=== PATIENT | male | born 1970 | race Caucasian/White ===

== ENCOUNTER 2017-05-11 06:44 | Day surgery (SDC) | payer MEDICARE ==
[2017-05-11] MEDS ORDERED: Sodium Chloride 0.9% 10 ML Syringe FLUSH PRN (06:45)
[2017-05-11] MEDS: Lactated Ringers 1,000 ML IV SCH (07:19)
[2017-05-11] MEDS ORDERED: Propofol 200 MG/20 ML SDV IV ONE (08:00)
[2017-05-11] MEDS ORDERED: Midazolam 1 MG/ML 2 ML SDV IV ONE (08:00)
--- NOTE | 2017-05-11 08:19 | PCM.OPNOTE ---
- General Post-Op/Procedure Note Date of Surgery/Procedure: 05/11/17 Operative Procedure(s): c scope Findings: normal exam Pre Op Diagnosis: hematochezia Post-Op Diagnosis: normal study Anesthesia Technique: MAC Primary Surgeon: Tres Crawford Anesthesia Provider: Severiano Buenrostro Pathology: none Complications: None Condition: Good Free Text/Narrative:: see dictation
--- NOTE | 2017-05-11 09:47 | OR ---
DATE OF OPERATION: 05/11/2017 SURGEON: Tres Crawford MD PROCEDURE PERFORMED: Colonoscopy. PREOPERATIVE DIAGNOSIS: Personal history of colon polyps and hematochezia. POSTOPERATIVE DIAGNOSIS: Normal exam. INDICATIONS FOR PROCEDURE: This is a 46-year-old white male, who apparently has had intermittent bout of hematochezia, which has spontaneously resolved. He has also had a colonoscopy in the past and apparently found to have benign polyps. This was over in [place]. On the basis of these 2 complaints, he was offered and accepted colonoscopy. DESCRIPTION OF PROCEDURE: After an excellent IV sedation was administered, digital rectal exam was performed. No marked abnormality was noted. The flexible colonoscope was inserted and advanced without difficulty to the cecum. The prep was excellent. The following findings were noted: Ascending colon, unremarkable. Transverse colon, unremarkable. Descending colon, unremarkable. Sigmoid and rectum, unremarkable. Colon was deflated. The scope was removed. The patient tolerated the procedure well, and was taken to recovery room in good condition. Repeat colonoscopy in 10 years. /[id number] /MODL
--- NOTE | 2017-05-11 10:18 | PREOP ---
ADMISSION DATE: 05/11/2017 CHIEF COMPLAINT: Hematochezia. HISTORY OF PRESENT ILLNESS: A 46-year-old white male who has had some bleeding per rectum. This has happened about a week ago, spontaneously resolved. He has had episodes like this in the past. He apparently has a history of benign polyps on previous colonoscopy. He has a negative family history. He does run towards constipation, but attributes this to his medication. MEDICATIONS: 1. Lamictal 100 mg once daily. 2. Sinemet 25-100 mg 1-1/2 tablets 3 times a day. 3. Albuterol 2 puffs every 6 hours as needed. 4. Prilosec 40 mg daily. 5. Imitrex 100 mg half a tablet by mouth as needed for migraines. 6. Vitamin D3 2000 international units daily. ALLERGIES: He has no known drug allergies. PAST MEDICAL HISTORY: Significant for schizoaffective disorder, bipolar type; migraine headaches; gastroesophageal reflux disease; chronic low back pain; history of esophageal stricture; insomnia; anxiety; depression; and parkinsonism. PAST SURGICAL HISTORY: Significant for colonoscopy. FAMILY HISTORY: Significant for hypertension, hypercholesterolemia, arthritis, bipolar disease, Parkinson disease, breast cancer, and asthma. SOCIAL HISTORY: The patient is , has 1 child. He has 11 years of education. He is disabled. He does not smoke. Denies any alcohol use. REVIEW OF SYSTEMS: CONSTITUTIONAL: The patient does note some unexpected weight change. HEENT: Positive for some difficulty swallowing. RESPIRATORY: Positive for cough and wheezing. GASTROINTESTINAL: Positive for blood in stools. GENITOURINARY: Positive for difficulty urinating. MUSCULOSKELETAL: Notable for back pain and some gait issues. PHYSICAL EXAMINATION: GENERAL: This is a well-developed, well-nourished male with an obvious pill roll tremor. HEENT: Grossly within normal limits. LUNGS: Clear to auscultation. HEART: Regular rate and rhythm. ABDOMEN: Soft and nontender. ASSESSMENT: History of hematochezia. PLAN: Colonoscopy procedure and risks explained to the patient to include bleeding, infection, perforation. He expresses understanding and he asked us to proceed. /[id number] /MODL
== END 2017-05-11 09:51 | disposition home or self-care (01) ==
LOC: FB.SDS 06:44
PROVIDERS: ATTEND Surgery
DX: K92.1 Melena (principal); F25.0 Schizoaffective disorder, bipolar type; G20 Parkinson's disease; K21.9 Gastro-esophageal reflux disease without esophagitis; G43.909 Migraine, unspecified, not intractable, without status migrainosus; G89.29 Other chronic pain; M54.5 Low back pain; F41.9 Anxiety disorder, unspecified; Z79.899 Other long term (current) drug therapy; Z86.010 Personal history of colon polyps
CPT/HCPCS: 00811-QZ; J2250; J2704; J7120

== ENCOUNTER 2019-01-26 13:47 | Emergency (ER) | payer MEDICARE ==
[2019-01-26] MEDS ORDERED: Sodium Chloride 0.9% 10 ML Syringe FLUSH PRN (14:00)
[2019-01-26] MEDS ORDERED: Iopamidol 755 Mg/ML 100 ML Bottle IV ONE (14:26)
--- NOTE | 2019-01-26 15:04 | EDM.PDOC ---
ED HPI GENERAL MEDICAL PROBLEM - General Chief Complaint: Chest Pain Stated Complaint: CHEST PAIN Time Seen by Provider: 01/26/19 14:05 Source of Information: Reports: Patient History Limitations: Reports: No Limitations - History of Present Illness INITIAL COMMENTS - FREE TEXT/NARRATIVE: Patient presented to the ED from the clinic because of an elevated D-dimer. He has been coughing x2 weeks now which is non-productive with associated left sided pleuritic pain. The pain is sharp,3/10 and worse with coughing and body movements. There is no associated fever or chills. His EKG and trop done in the clinic were normal. Treatments STOVE MOUNTER: Reports: EKG chest Pain Score (Numeric/FACES): 2 - Related Data Allergies Allergy/AdvReac Type Severity Reaction Status Date / Time No Known Allergies Allergy Verified 01/26/19 14:20 Home Meds: Home Meds Omeprazole 40 mg PO DAILY 03/09/13 [History] Albuterol [Ventolin HFA] 2 puff INH Q6H PRN 05/08/17 [History] Carbidopa/Levodopa [Carbidopa-Levodopa 25-100 Tab] 2 each PO 09,,,18 [History] Cholecalciferol (Vitamin D3) [Vitamin D3] 2,000 unit PO DAILY 05/08/17 [History] lamoTRIgine [Lamotrigine] 100 mg PO DAILY 05/08/17 [History] Azithromycin [Zithromax] 200 mg PO DAILY #6 ml 01/26/19 [Rx] Carbidopa 25 mg PO 12,15,18 01/26/19 [History] Carbidopa 50 mg PO 09 01/26/19 [History] Naproxen 500 mg PO BID #15 tablet 01/26/19 [Rx] lamoTRIgine [Lamotrigine] 25 mg PO DAILY 01/26/19 [History] Past Medical History HEENT History: Reports: None Cardiovascular History: Reports: None Respiratory History: Reports: Asthma Gastrointestinal History: Reports: GERD, Other (See Below) Other Gastrointestinal History: ESOPHAGEAL STRICTURE; H&P NOTED UCLER, UNSPECIFIED Genitourinary History: Reports: None CHANGE MANAGEMENT ANALYST History: Reports: None Musculoskeletal History: Reports: Back Pain, Chronic Neurological History: Reports: Migraines, Parkinson's Psychiatric History: Reports: Anxiety, Depression, Schizophrenia, Other (See Below) Other Psychiatric History: INSOMNIA Endocrine/Metabolic History: Reports: None Hematologic History: Reports: None Immunologic History: Reports: None Oncologic (Cancer) History: Reports: None Dermatologic History: Reports: Other (See Below) Other Dermatologic History: ULCER, UNSPECIFIED - Infectious Disease History Infectious Disease History: Reports: None - Past Surgical History Head Surgeries/Procedures: Reports: None HEENT Surgical History: Reports: None Cardiovascular Surgical History: Reports: None Respiratory Surgical History: Reports: None GI Surgical History: Reports: Colonoscopy, EGD Social & Family History - Family History GI: Reports: None - Tobacco Use Smoking Status *Q: Never Smoker - Caffeine Use Caffeine Use: Reports: None - Recreational Drug Use Recreational Drug Use: No ED ROS GENERAL - Review of Systems Review Of Systems: See Below Constitutional: Reports: No Symptoms HEENT: Reports: No Symptoms Respiratory: Reports: No Symptoms Cardiovascular: Reports: No Symptoms Endocrine: Reports: No Symptoms GI/Abdominal: Reports: No Symptoms : Reports: No Symptoms Musculoskeletal: Reports: No Symptoms Skin: Reports: No Symptoms Neurological: Reports: No Symptoms ED EXAM, GENERAL - Physical Exam Exam: See Below Exam Limited By: No Limitations General Appearance: Alert, WD/WN, No Apparent Distress Ears: Normal External Exam, Normal Canal, Hearing Grossly Normal, Normal TMs Nose: Normal Inspection, Normal Mucosa, No Blood Throat/Mouth: Normal Inspection, Normal Lips, Normal Teeth, Normal Oropharynx, Normal Voice, No Airway Compromise Head: Atraumatic, Normocephalic Neck: Normal Inspection, Supple, Non-Tender, Full Range of Motion Respiratory/Chest: No Respiratory Distress, Lungs Clear, Normal Breath Sounds, No Accessory Muscle Use, Chest Non-Tender Cardiovascular: Normal Peripheral Pulses, Regular Rate, Rhythm, No Edema, No Gallop, No JVD, No Murmur GI/Abdominal: Normal Bowel Sounds, Soft, Non-Tender, No Organomegaly, No Distention, No Abnormal Bruit, No Mass Back Exam: Normal Inspection, Full Range of Motion Extremities: Normal Inspection, Normal Range of Motion Neurological: Alert, Oriented, CN II-XII Intact, Normal Cognition, Normal Gait, Normal Reflexes, No Motor/Sensory Deficits Course - Vital Signs Text/Narrative:: labs and chest CT result discussed with patient Chest CT-see result Last Recorded V/S: Last Vital Signs Temp 37.1 C 01/26/19 13:50 Pulse 79 01/26/19 13:50 Resp 18 01/26/19 15:00 BP 112/66 01/26/19 15:00 Pulse Ox 96 01/26/19 15:00 - Orders/Labs/Meds Orders: Active Orders 24 hr Category Date Time Status Saline Lock Insert [OM.PC] Routine Oth 01/26/19 14:00 Ordered Labs: Laboratory Tests 01/26/19 01/26/19 01/26/19 Range/Units 14:14 14:14 14:14 WBC 5.1 (4.5-12.0) X10-3/uL RBC 4.93 (4.30-5.75) x10(6)uL Hgb 15.7 (13.5-17.8) g/dL Hct 46.5 (30.0-51.3) % MCV 94.4 (80-96) fL MCH 31.9 (27.7-33.6) pg MCHC 33.8 (32.2-35.4) g/dL RDW 12.0 (11.5-15.5) % Plt Count 238 (125-369) X10(3)uL MPV 7.4 (7.4-10.4) fL Neut % (Auto) 59.5 (46-82) % Lymph % (Auto) 30.4 (13-37) % Ocean % (Auto) 7.5 (4-12) % Eos % (Auto) 2 (1.0-5.0) % Baso % (Auto) 0 (0-2) % Neut # (Auto) 3.1 (1.6-8.3) # Lymph # (Auto) 1.5 (0.6-5.0) # Ocean # (Auto) 0.4 (0.0-1.3) # Eos # (Auto) 0.1 (0.0-0.8) # Baso # (Auto) 0.0 (0.0-0.2) # PT 10.4 (8.7-11.1) INR 1.07 (0.89-1.13) APTT 23.1 L (24.4-33.2) SECONDS Sodium 142 (135-145) mmol/L Potassium 4.2 (3.5-5.3) mmol/L Chloride 104 (100-110) mmol/L Carbon Dioxide 32 (21-32) mmol/L BUN 13 (7-18) mg/dL Creatinine 0.9 (0.70-1.30) mg/dL Est Cr Clr Drug Dosing TNP Estimated GFR (MDRD) > 60 (>60) BUN/Creatinine Ratio 14.4 (9-20) Glucose 93 (80-116) mg/dL Calcium 8.8 (8.6-10.2) mg/dL Meds: Medications Discontinued Medications Generic Name Dose Route Start Last Admin Trade Name Freq PRN Reason Stop Dose Admin Iopamidol 100 ml 01/26/19 14:26 01/26/19 14:28 Isovue-370 (76%) IV 01/26/19 14:27 86 ml ONETIME ONE Administration Sodium Chloride 10 ml 01/26/19 14:00 01/26/19 14:10 Saline Flush FLUSH 10 ml ASDIRECTED PRN Administration Keep Vein Open Departure - Departure Time of Disposition: 15:00 Disposition: Home, Self-Care 01 Condition: Good Clinical Impression: Acute bronchitis, Pleuritic pain - Discharge Information Prescriptions: Azithromycin [Zithromax] 200 mg PO DAILY #6 ml Naproxen 500 mg PO BID #15 tablet Instructions: Pleurisy, [id number], Acute Bronchitis, Adult Referrals: Michael Gomez MD [Primary Care Provider] - Forms: ED Department Discharge Additional Instructions: please read discharge instructions on bronchitis and pleuritic pain increase oral fluids z-isabel as directed naproxen 500 mg twice daily for 7 days follow up if symptoms persist Sepsis Event Note - Evaluation Sepsis Screening Result: No Definite Risk - Focused Exam Vital Signs: Vital Signs Temp Pulse Resp BP Pulse Ox 01/26/19 15:00 18 112/66 96 01/26/19 14:45 18 116/78 96 01/26/19 14:30 18 113/65 96 01/26/19 14:00 18 119/86 01/26/19 13:50 37.1 C 79 16 139/75 99 Date Exam was Performed: 01/26/19 Time Exam was Performed: 21:30 - My Orders Last 24 Hours: My Active Orders 01/26/19 14:00 Saline Lock Insert [OM.PC] Routine - Assessment/Plan Last 24 Hours: My Active Orders 01/26/19 14:00 Saline Lock Insert [OM.PC] Routine
--- NOTE | 2019-01-26 16:22 | CT ---
INDICATION: Chest pain to the left of the sternum, question pulmonary emboli. Elevated D-dimer. COMPUTERIZED TOMOGRAPHY ANGIOGRAPHY OF THE CHEST WITH CONTRAST: Spiral 1.25 mm axial sections were obtained through the chest with sagittal and coronal reconstructions utilizing 86 cc Isovue-370 (at 3 cc/second) 01/26/19 and compared with 08/08/14. Total exam DLP was 439.82 mGy-cm. No mediastinal mass was identified. The heart is normal in size. No pericardial effusion was seen. Upper abdomen included on the study revealed no gross abnormality, except for question of a 10 mm renal calculus in the mid pole of the right kidney seen on axial image 535, among others. A subpleural density is noted at the left lower lobe with a density stringing anteriorly and inferiorly to the diaphragm area. This may represent an area of subsegmental atelectasis or possibly minimal pneumonia and atelectasis. Pulmonary infarct is felt to be less likely. Otherwise, a definite active infiltrate or effusion was not identified. Minimal fibrotic changes are suggested at the right lower lobe posteriorly at the lung base. No evidence of a pulmonary embolus could be identified however. IMPRESSION: 1. No evidence of pulmonary embolus identified. 2. Infiltrate and possible atelectasis in the left lower lobe at the lung base extending from the costophrenic angle area medially into the infrahilar area. A degree of fibrosis could also be present with this appearance and/or a pneumonia. 3. Renal calculus 10 mm in diameter mid pole right kidney. Report was called to Dr. Luther at [address] [facility]
== END 2019-01-26 15:09 | disposition home or self-care (01) ==
LOC: FB.ED 13:47
DX: J20.9 Acute bronchitis, unspecified (principal); J45.909 Unspecified asthma, uncomplicated; K21.9 Gastro-esophageal reflux disease without esophagitis; Z79.899 Other long term (current) drug therapy
CPT/HCPCS: 36415; 71275; 80048; 85025; 85610; 85730; 99285; Q9967; 99283

== ENCOUNTER 2023-10-14 05:27 | Emergency (ER) | payer MEDICARE ==
[2023-10-14 06:01] LABS: BASOPHILS PERCENT AUTO 0.4 % (0.3-3.8); EOSINOPHILS ABSOLUTE AUTO 0.1 x10-3/uL (0.0-0.6); EOSINOPHILS PERCENT AUTO 1.3 % (0.1-6.8); HEMATOCRIT 43.1 % (38.3-50.1); HEMOGLOBIN 14.7 g/dL (12.9-17.7); LYMPHOCYTES ABSOLUTE AUTO 1.1 x10-3/uL (0.5-4.5); LYMPHOCYTES PERCENT AUTO 16.9 % (15.8-45.3); MEAN CORPUSCULAR VOLUME 94.1 fL (80.8-98.7); MEAN PLATELET VOLUME 7.4 fL (6.7-11.0); MONOCYTES ABSOLUTE AUTO 0.5 x10-3/uL (0.0-1.2); MONOCYTES PERCENT AUTO 7.7 % (5.5-15.2); NEUTROPHILS ABSOLUTE AUTO 4.6 x10-3/uL (1.7-6.9); NEUTROPHILS PERCENT AUTO 73.7 % (40.3-71.8); PLATELET COUNT,PLT 304 x10(3)uL (117-477); RED BLOOD CELL COUNT 4.58 x10(6)uL (3.90-5.90); RED CELL DISTRIBUTION WIDTH 12.9 % (12.4-15.0); WHITE BLOOD CELL COUNT,WBC 6.2 x10-3/uL (3.2-10.1)
[2023-10-14 06:08] LABS: BLOOD UREA NITROGEN,BUN 14 mg/dL (7-18); BUN/CREATININE RATIO 17.5 (9-20); CALCIUM 8.6 mg/dL (8.6-10.2); CARBON DIOXIDE,CO2 31 mmol/L (21-32); CHLORIDE,CL 104 mmol/L (100-110); CREATININE 0.8 mg/dL (0.70-1.30); EST CRCL DRUG DOSING (CG) 109.24 mL/min; ESTIMATED GFR 107 mL/min (>60); GLUCOSE RANDOM 111 mg/dL (80-116); POTASSIUM,K 3.5 mmol/L (3.5-5.3); SODIUM,NA 143 mmol/L (135-145)
[2023-10-14 06:10] LABS: BILIRUBIN,URINE NEGATIVE (NEGATIVE); GLUCOSE,URINE NORMAL (NORMAL); KETONES,URINE NEGATIVE (NEGATIVE); LEUKOCYTE ESTERASE,URINE NEGATIVE (NEGATIVE); NITRITE,URINE NEGATIVE (NEGATIVE); OCCULT BLOOD,URINE MODERATE (NEGATIVE); PROTEIN,URINE NEGATIVE (NEGATIVE); UROBILINOGEN,URINE 1 mg/dL (NEGATIVE)
[2023-10-14 06:12] LABS: APPEARANCE,URINE CLEAR (CLEAR); BACTERIA,URINE MANY (NS); COLOR,URINE YELLOW (YELLOW); RBC,URINE 0-5 (0-5); SQUAMOUS EPITHELIAL CELLS,UR FEW (NS,R,O); WBC,URINE 0-5 (0-5)
[2023-10-14 06:13] LABS: A/G RATIO 1.2; ALANINE AMINOTRANSFERASE,ALT 15 U/L (12-36); ALBUMIN 3.9 g/dL (3.5-5.2); ALKALINE PHOSPHATASE 81 IU/L (56-112); ASPARTATE AMNIOTRANSFERASE,AST 13 IU/L (5-25); BILIRUBIN TOTAL 0.7 mg/dL (0.1-1.3); PROTEIN TOTAL,TP 7.2 g/dL (6.0-8.0)
[2023-10-14] MEDS ORDERED: cefTRIAXone 1 GM in Sodium Chloride 0.9% 50 ML IV ONE (06:32)
[2023-10-14] MEDS: Carbidopa/Levodopa 25-100 MG Tab PO ONE (06:52)
[2023-10-14] MEDS: cefTRIAXone 1 GM Vial IM ONE (06:53)
== END 2023-10-14 08:00 | disposition home or self-care (01) ==
LOC: FB.ED 05:27
DX: G20.A1 Parkinson's disease without dyskinesia, without mention of fluctuations (principal); N39.0 Urinary tract infection, site not specified; K21.9 Gastro-esophageal reflux disease without esophagitis; Z79.899 Other long term (current) drug therapy
CPT/HCPCS: 36415; 80053; 81001; 85025; 87086; 96372; 99285; A9270; J0696; 99284

== ENCOUNTER 2023-11-19 22:52 | Emergency (ER) | payer MEDICARE ==
[2023-11-19] MEDS ORDERED: Sodium Chloride 0.9% 10 ML Syringe FLUSH PRN (22:53)
[2023-11-19] MEDS ORDERED: Carbidopa/Levodopa 25-100 MG Tab PO ONE (22:55)
[2023-11-19 23:07] LABS: BASOPHILS ABSOLUTE AUTO 0.1 x10-3/uL (0.0-0.3); BASOPHILS PERCENT AUTO 0.5 % (0.3-3.8); EOSINOPHILS ABSOLUTE AUTO 0.1 x10-3/uL (0.0-0.6); EOSINOPHILS PERCENT AUTO 0.6 % (0.1-6.8); HEMATOCRIT 42.4 % (38.3-50.1); HEMOGLOBIN 14.4 g/dL (12.9-17.7); LYMPHOCYTES ABSOLUTE AUTO 1.1 x10-3/uL (0.5-4.5); LYMPHOCYTES PERCENT AUTO 8.7 % (15.8-45.3); MEAN CORPUSCULAR HEMOGLOBIN 31.6 pg (27.0-33.3); MEAN CORPUSCULAR HGB CONC 33.9 g/dL (28.7-35.3); MEAN CORPUSCULAR VOLUME 93.4 fL (80.8-98.7); MEAN PLATELET VOLUME 7.5 fL (6.7-11.0); MONOCYTES ABSOLUTE AUTO 1.3 x10-3/uL (0.0-1.2); MONOCYTES PERCENT AUTO 10.3 % (5.5-15.2); NEUTROPHILS PERCENT AUTO 79.9 % (40.3-71.8); PLATELET COUNT,PLT 274 x10(3)uL (117-477); RED BLOOD CELL COUNT 4.54 x10(6)uL (3.90-5.90); RED CELL DISTRIBUTION WIDTH 12.8 % (12.4-15.0); WHITE BLOOD CELL COUNT,WBC 12.5 x10-3/uL (3.2-10.1)
[2023-11-19 23:10] LABS: BLOOD UREA NITROGEN,BUN 14 mg/dL (7-18); BUN/CREATININE RATIO 12.7 (9-20); CALCIUM 8.4 mg/dL (8.6-10.2); CARBON DIOXIDE,CO2 28 mmol/L (21-32); CHLORIDE,CL 104 mmol/L (100-110); CREATININE 1.1 mg/dL (0.70-1.30); ESTIMATED GFR 81 mL/min (>60); GLUCOSE RANDOM 92 mg/dL (80-116); POTASSIUM,K 3.5 mmol/L (3.5-5.3); SODIUM,NA 143 mmol/L (135-145)
[2023-11-19 23:16] LABS: A/G RATIO 1.2; ALANINE AMINOTRANSFERASE,ALT 12 U/L (12-36); ALBUMIN 3.7 g/dL (3.5-5.2); ALKALINE PHOSPHATASE 80 IU/L (56-112); ASPARTATE AMNIOTRANSFERASE,AST 19 IU/L (5-25); BILIRUBIN TOTAL 0.8 mg/dL (0.1-1.3); PROTEIN TOTAL,TP 6.7 g/dL (6.0-8.0); SALICYLATE 1.5 mg/dL (<2.8)
[2023-11-19 23:18] LABS: ACETAMINOPHEN < 2 ug/mL (<2)
[2023-11-19 23:20] LABS: ETHANOL BLOOD MEDICAL < 0.03 % (<0.03); TROPONIN I 61.7 pg/mL (4.0-60.3)
[2023-11-20 00:14] LABS: BILIRUBIN,URINE NEGATIVE (NEGATIVE); GLUCOSE,URINE NORMAL (NORMAL); KETONES,URINE 15 mg/dL (NEGATIVE); LEUKOCYTE ESTERASE,URINE LARGE (NEGATIVE); NITRITE,URINE NEGATIVE (NEGATIVE); OCCULT BLOOD,URINE LARGE (NEGATIVE); PROTEIN,URINE 30 mg/dL (NEGATIVE); UROBILINOGEN,URINE 1 mg/dL (NEGATIVE)
[2023-11-20 00:17] LABS: APPEARANCE,URINE CLOUDY (CLEAR); COLOR,URINE YELLOW (YELLOW)
[2023-11-20 00:30] LABS: BACTERIA,URINE MODERATE (NS); MUCUS,URINE MODERATE (NS); RBC,URINE 40-50 (0-5); SQUAMOUS EPITHELIAL CELLS,UR FEW (NS,R,O); WBC,URINE 20-30 (0-5)
[2023-11-20 00:31] LABS: AMPHETAMINES SCREEN, URINE NEGATIVE (NEGATIVE); BARBITURATE SCREEN,URINE NEGATIVE (NEGATIVE); BENZODIAZEPINES SCREEN,URINE NEGATIVE (NEGATIVE); METHADONE SCREEN, URINE NEGATIVE (NEGATIVE); METHAMPHETAMINE SCREEN, URINE NEGATIVE (NEGATIVE); OXYCODONE SCREEN,URINE NEGATIVE (NEGATIVE); THC SCREEN,URINE NEGATIVE (NEGATIVE)
[2023-11-20 00:32] LABS: BUPRENORPHINE SCREEN,URINE NEGATIVE (NEGATIVE)
[2023-11-20] MEDS: Nitrofurantoin Monohydrate/Macrocrystalline 100 MG Cap PO ONE (00:58)
[2023-11-20] MEDS: OLANZapine 10 MG Vial IM ONE (01:13)
[2023-11-20] MEDS: LORazepam 2 MG/ML SDV IM PRN (02:44)
[2023-11-20 06:10] LABS: BLOOD UREA NITROGEN,BUN 12 mg/dL (7-18); CALCIUM 8.5 mg/dL (8.6-10.2); CARBON DIOXIDE,CO2 31 mmol/L (21-32); CHLORIDE,CL 106 mmol/L (100-110); CREATININE 0.8 mg/dL (0.70-1.30); EST CRCL DRUG DOSING (CG) 109.24 mL/min; ESTIMATED GFR 107 mL/min (>60); GLUCOSE RANDOM 90 mg/dL (80-116); POTASSIUM,K 3.5 mmol/L (3.5-5.3); SODIUM,NA 143 mmol/L (135-145)
[2023-11-20 06:21] LABS: BASOPHILS PERCENT AUTO 0.5 % (0.3-3.8); EOSINOPHILS ABSOLUTE AUTO 0.1 x10-3/uL (0.0-0.6); EOSINOPHILS PERCENT AUTO 1.5 % (0.1-6.8); HEMATOCRIT 44.6 % (38.3-50.1); HEMOGLOBIN 15.3 g/dL (12.9-17.7); LYMPHOCYTES ABSOLUTE AUTO 1.9 x10-3/uL (0.5-4.5); LYMPHOCYTES PERCENT AUTO 24.2 % (15.8-45.3); MEAN CORPUSCULAR HEMOGLOBIN 31.7 pg (27.0-33.3); MEAN CORPUSCULAR HGB CONC 34.3 g/dL (28.7-35.3); MEAN CORPUSCULAR VOLUME 92.7 fL (80.8-98.7); MEAN PLATELET VOLUME 7.4 fL (6.7-11.0); MONOCYTES ABSOLUTE AUTO 0.8 x10-3/uL (0.0-1.2); MONOCYTES PERCENT AUTO 10.8 % (5.5-15.2); NEUTROPHILS ABSOLUTE AUTO 4.9 x10-3/uL (1.7-6.9); PLATELET COUNT,PLT 253 x10(3)uL (117-477); RED BLOOD CELL COUNT 4.81 x10(6)uL (3.90-5.90); RED CELL DISTRIBUTION WIDTH 13.1 % (12.4-15.0); WHITE BLOOD CELL COUNT,WBC 7.8 x10-3/uL (3.2-10.1)
[2023-11-20] MEDS: Haloperidol Lactate 5 MG/ML SDV IM PRN (06:27)
[2023-11-20 06:34] LABS: C-REACTIVE PROTEIN < 0.50 mg/dL (<0.50); TROPONIN I 95.3 pg/mL (4.0-60.3)
[2023-11-20] MEDS: LORazepam 2 MG/ML SDV IVPUSH ONE ×2 (07:50→09:58)
[2023-11-20] MEDS: Sodium Chloride 0.9% 1,000 ML IV ONE (08:08)
[2023-11-20] MEDS: cefTRIAXone 2 GM Vial IVPUSH ONE (08:15)
[2023-11-20] MEDS: Haloperidol Lactate 5 MG/ML SDV IVPUSH ONE (09:59)
[2023-11-20] MEDS: Sodium Chloride 0.9% 1,000 ML IV SCH (10:29)
[2023-11-20 10:45] LABS: INR 1.01 (1.00-1.24); PROTHROMBIN TIME 10.5 sec (9.0-11.1); PTT,PARTIAL THROMBOPLSTIN TIME 23.5 SECONDS (24.4-33.2)
[2023-11-20] MEDS: Heparin Sodium 5,000 Units/ML Vial IVPUSH ONE (10:54)
[2023-11-20] MEDS: Heparin Sodium/0.45% NaCl 500 ML IV SCH (10:56)
[2023-11-20] MEDS ORDERED: LORazepam 2 MG/ML SDV ONE (11:44)
== END 2023-11-20 11:52 ==
LOC: FB.ED 22:52
DX: G20.A1 Parkinson's disease without dyskinesia, without mention of fluctuations (principal); F29 Unspecified psychosis not due to a substance or known physiological condition; R79.89 Other specified abnormal findings of blood chemistry; R45.1 Restlessness and agitation; G93.40 Encephalopathy, unspecified; M62.82 Rhabdomyolysis; N39.0 Urinary tract infection, site not specified; K21.9 Gastro-esophageal reflux disease without esophagitis; J45.909 Unspecified asthma, uncomplicated; Z79.899 Other long term (current) drug therapy
CPT/HCPCS: 36415; 70450; 80048; 80053; 80143; 80179; 80307; 81001; 82550; 83605; 84484; 85025; 85610; 85730; 86140; 87040; 87086; 93005; 93010; 96361; 96365; 96372; 96375; 96376; 99285; 99285-25; A9270-GY; J0696; J1630; J1644; J2060; J2359; J7030